=== PATIENT | male | born 1995 | race American Indian/Alaskan Native ===

== ENCOUNTER 2017-03-29 12:02 | Emergency (ER) | payer SELFPAY ==
[2017-03-29 12:23] VITALS: BP 122/73
--- NOTE | 2017-03-29 12:50 | XRay Report ---
LEFT SHOULDER RADIOGRAPHS INDICATION: Left shoulder injury, pain. COMPARISON: None similar at this institution. FINDINGS: Frontal and Y views of the left shoulder, 3 projections demonstrate normal humeral head contour, well positioned against the glenoid. Normal acromioclavicular joint. Preserved scapular contour. Normal visualized soft tissues, left ribs and lung. CONCLUSION: No acute left shoulder radiographic abnormality, as described. Thank you for the opportunity to participate in this patient's care.
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
== END 2017-03-29 15:41 | disposition home or self-care (01) ==
LOC: ED 12:02
DX: S46.912A Strain of unspecified muscle, fascia and tendon at shoulder and upper arm level, left arm, initial encounter (principal); F17.200 Nicotine dependence, unspecified, uncomplicated; X58.XXXA Exposure to other specified factors, initial encounter; Y93.89 Activity, other specified; Y99.9 Unspecified external cause status; Y92.89 Other specified places as the place of occurrence of the external cause
CPT/HCPCS: 99284